=== PATIENT | female | born 1975 | race Asian ===

== ENCOUNTER 2016-05-29 00:25 | Emergency (ER) | payer OTHER ==
[~2016-05-29] VITALS: Ht 149.9 cm; Wt 72.6 kg
--- NOTE | 2016-05-29 01:17 | ED GI/GU/ABDOMINAL COMPLAINT ---
History of Present Illness General Chief Complaint: Abdominal Pain/Flank Pain Stated Complaint: ABD PAIN 12 WKS PREG Source: patient Exam Limitations: no limitations Vital Signs & Intake/Output Vital Signs & Intake/Output Vital Signs Date Time Temp Pulse Resp B/P Pulse O2 O2 Flow FiO2 Ox Delivery Rate 05/29 0406 99.0 71 18 98/63 98 Room Air 05/29 0106 98.0 85 18 102/60 100 Room Air Allergies Coded Allergies: No Known Allergies (08/02/15) Reconcile Medications Ondansetron (Zofran Odt) 4 MG TAB.RAPDIS 1 TAB SL TID PRN NASUEA Triage Note: TRIAGE: PATIENT TO ER FROM HOME REPORTS SUDDEN [facility] MIDSTERNAL CP X 30 MINUTES, W/ SUDDEN [facility] N/V AND SLIGHT DIZZINESS ON ARRIVAL. PATIENT REPORTS PAIN 10/10 AT [facility], NOW 6/10. PATIENT PLACED ON INSURANCE LEGAL ASSISTANT, HR:80'S SINUS. DENIES SOB. EKG IN PROGRESS W/ BLOODWORK. Triage Nurses Notes Reviewed? yes ? y Is pt currently ? No Onset: Abrupt Duration: hour(s): Timing: single episode today Quality/Severity: cramping Location: epigastric Radiation: no radiation Activities at Onset: none Prior Abdominal Problems: none Modifying Factors: Improves With: rest. Worsens With: vomiting. Associated Symptoms: abdominal pain, nausea/vomiting HPI: 40 yo woman, 12 weeks gestation, with healthy , presents with sudden onset of acute nausea and vomiting after eating jaye rice and ribs at approximately 11:30. "I ate the food and then afterwards threw up everything... I've felt sick since then." No fever, chills, diarrhea, dysuria, vaginal discharge, vaginal bleeding. She has no sensation of contractions. Past History Travel History Traveled to [place] past 21 day No Medical History Any Pertinent Medical History? see below for history Neurological: NONE EENT: NONE Cardiovascular: NONE Respiratory: NONE Gastrointestinal: NONE Hepatic: NONE Renal: NONE Musculoskeletal: NONE Psychiatric: NONE Endocrine: NONE Blood Disorders: NONE Cancer(s): NONE COMIC WRITER/Reproductive: NONE Tetanus Vaccine: 08/02/15 Surgical History Surgical History: non-contributory Psychosocial History What is your primary language Laotian Tobacco Use: Never used Family History Hx Contributory? No Review of Systems Review of Systems Constitutional: Reports: no symptoms. EENTM: Reports: no symptoms. Respiratory: Reports: no symptoms. Cardiovascular: Reports: no symptoms. GI: Reports: no symptoms. Genitourinary: Reports: no symptoms. Musculoskeletal: Reports: no symptoms. Skin: Reports: no symptoms. Neurological/Psychological: Reports: no symptoms. Hematologic/Endocrine: Reports: no symptoms. Immunologic/Allergic: Reports: no symptoms. All Other Systems: Reviewed and Negative Physical Exam Physical Exam General Appearance: well developed/nourished, mild distress Head: atraumatic, normal appearance Eyes: Bilateral: normal appearance. Ears, Nose, Throat, Mouth: hearing grossly normal Neck: normal inspection, supple, full range of motion, normal alignment Respiratory: normal breath sounds, chest non-tender, no respiratory distress, quiet respiration, lungs clear Cardiovascular: regular rate/rhythm Gastrointestinal: normal bowel sounds, soft, mild mid epigastric tenderness to palpation. no rebound. no guarding. no ruq tenderness Back: normal inspection Extremities: normal range of motion Neurologic/Psych: no motor/sensory deficits, awake, alert, oriented x 3 Skin: intact, normal color, warm/dry Core Measures ACS in differential dx? No Severe Sepsis Present: No Septic Shock Present: No Progress Differential Diagnosis: food poisoning, gastroenteritis vs other. Plan of Care: Orders Procedure Date/time Status Add-on Test (ER Only) 05/29 0134 Active URINALYSIS 05/29 116 Complete LIPASE 05/29 114 Complete HUMAN BETA HCG TITRE 05/29 114 Complete TROPONIN LEVEL 05/29 108 Complete COMPREHENSIVE METABOLIC PANEL 05/29 108 Complete CBC WITHOUT DIFFERENTIAL 05/29 108 Complete EKG 05/29 010 Active Laboratory Tests 05/29/16 0355: Urinalysis MOD H, Urine Color YEL, Urine Clarity HAZY H, Urine pH 7.0, Ur Specific [place] 1.010, Urine Protein NEG, Urine Ketones TRACE H, Urine Nitrite NEG, Urine Bilirubin NEG, Urine Urobilinogen 1.0, Ur Leukocyte Esterase SMALL H , Ur Microscopic SEDIMENT EXAMINED, Urine WBC RARE, Ur Epithelial Cells FEW, Urine Hemoglobin NEG, Urine Glucose NEG 05/29/16 011: Beta HCG, Quant Cancelled 05/29/16 0115: Anion Gap 17 H, Estimated GFR > 60, BUN/Creatinine Ratio 13.3, Glucose 98, Calcium 9.8, Total Bilirubin 0.4, AST 44 H, ALT 52, Alkaline Phosphatase 46, Troponin I < 0.01, Total Protein 8.0, Albumin 4.5, Globulin 3.5, Albumin/ Globulin Ratio 1.3, Lipase 362 H, Beta HCG, Quant 78072.0, CBC w Diff NO MAN DIFF REQ, RBC 4.07 L, MCV 87.3, MCH 29.8, RDW 12.6, MPV 11.3 H, Gran % 68.6, Lymphocytes % 21.0, Monocytes % 6.6, Eosinophils % 3.5, Basophils % 0.3, Absolute Granulocytes 7.7 H, Absolute Lymphocytes 2.3, Absolute Monocytes 0.7 H, Absolute Eosinophils 0.4, Absolute Basophils 0, PUBS MCHC 34.1 Initial ED EKG: normal axis, normal intervals, normal p-waves, normal QRS complex, normal sinus rhythm Departure Departure Disposition: HOME OR SELF CARE Condition: Stable Clinical Impression Primary Impression: Food poisoning Secondary Impressions: Abdominal pain Referrals: PATIENT HAS NO PRIMARY CARE DR (PCP/Family) Departure Forms: Customer Survey General Discharge Information Prescriptions: Current Visit Scripts Ondansetron (Zofran Odt) 1 TAB SL TID PRN NASUEA #10 TAB Ref 1 Comments 05/29/16, 4:55am... pt feels well after supportive measures... labs benign... bedside u/s by edmd reveals heart rate in 150's, ample amniotic fluid. No vomiting in ED. Pt wishes to go home. Rx for zofran called into [facility].
[2016-05-29 01:24] LABS: ABSOLUTE BASOPHIL COUNT 0 /CUMM (0.0-0.2); ABSOLUTE EOSINOPHIL COUNT 0.4 /CUMM (0.0-0.7); ABSOLUTE GRANULOCYTE CT 7.7 /CUMM (1.4-6.5); ABSOLUTE LYMPH COUNT 2.3 /CUMM (1.2-3.4); ABSOLUTE MONOCYTE COUNT 0.7 /CUMM (0.10-0.60); BASOPHIL % 0.3 % (0.0-2.0); EOSINOPHIL % 3.5 % (0-5); GRANULOCYTE % 68.6 % (42.2-75.2); HEMATOCRIT 35.6 % (37-47); MEAN CORPUSCULAR HGB 29.8 PG (27.0-31.0); MEAN CORPUSCULAR HGB CONC 34.1 G/DL (33.0-37.0); MEAN CORPUSCULAR VOLUME 87.3 FL (81.0-99.0); MEAN PLATELET VOLUME 11.3 FL (7.4-10.4); RBC DISTRIBUTION WIDTH 12.6 % (11.5-14.5); RED BLOOD CELL CT 4.07 /CUMM (4.20-5.40); WHITE BLOOD CELL COUNT 11.2 /CUMM (4.8-10.8)
[2016-05-29 01:35] LABS: PLATELET COUNT 114 /CUMM (130-400)
[2016-05-29] MEDS ORDERED: ZOFRAN ODT4 M1 SL (01:35)
[2016-05-29 05:18] VITALS: BP 103/69
== END 2016-05-29 05:25 ==
LOC: ERH 00:25
PROVIDERS: Emergency Medicine
DX: O99.89 Other specified diseases and conditions complicating pregnancy, childbirth and the puerperium (principal); A05.9 Bacterial foodborne intoxication, unspecified; R10.13 Epigastric pain; Z3A.12 12 weeks gestation of pregnancy
CPT/HCPCS: 81001; 93005; 93010; 96361; 96374; 96375; J2405